=== PATIENT | female | born 1985 | race Caucasian/White ===

== ENCOUNTER 2021-03-06 01:44 | Inpatient (IN) ==
[2021-03-06] MEDS ORDERED: ONDANSETRON 4 MG/2 ML VIAL IV PRN (01:56)
[2021-03-06] MEDS ORDERED: BUTORPHANOL 2 MG/ML VIAL IV PRN (01:56)
[2021-03-06] MEDS ORDERED: MEPERIDINE 50 MG/1 ML VIAL IV PRN (01:56)
[2021-03-06 02:19] LABS: Basophils % 0.4 % (0.0-0.8); Eosinophils # 0.1 10*3/uL (0.0-0.87); Eosinophils % 1.2 % (0.00-10.9); Hematocrit 32.9 VOL% (35.7-47.0); Hemoglobin 10.5 GM/DL (12.0-16.0); Immature Granulocytes % 0.3 %; Immature Granulocytes Absolute 0.02 #; Lymphocytes # 1.6 10*3/uL (1.4-4.0); Lymphocytes % 21.3 % (21.3-54.2); Mean Corpuscular HGB Conc 31.9 GM/DL (32-36); Mean Platelet Volume 12.2 FL (9.6-12.0); Monocytes % 8.5 % (1.7-12.7); Neutrophils % 68.3 % (38.7-73.9); Platelet Count 171 T/CUMM (130-400); Red Cell Distribution Width 13.8 % (9.3-17.3); White Blood Count 7.5 T/CUMM (4-12)
[2021-03-06 02:39] LABS: Alanine Aminotransferase 25 U/L (13-56); Albumin 2.7 G/DL (3.4-5.0); Alkaline Phosphatase 107 U/L (45-117); Aspartate Amino Transferase 13 U/L (0-37); Bilirubin,Total < 0.39 MG/DL (0.20-1.00); Blood Urea Nitrogen 8 MG/DL (7-18); Calcium 9.1 MG/DL (8.5-10.1); Carbon Dioxide 24 MMOL/L (21-32); Estimated Glom Filtration Rate 146 ML/MIN; Glucose 83 MG/DL (74-106); Osmolality,Calculated 273.5 MOS/KG (273-304); Potassium 3.9 MMOL/L (3.5-5.1); Sodium 139 MMOL/L (136-145); Total Protein 6.8 G/DL (6.4-8.2)
[2021-03-06] MEDS: LACTATED RINGERS 1,000 ML IV SCH ×2 (04:01→08:51)
[2021-03-06] MEDS: OXYTOCIN/LR 20 UNIT/1,000 ML BAG IV SCH ×3 (04:02→18:15)
[2021-03-06] MEDS ORDERED: INFLUENZA VIRUS VACCINE 0.5 ML SYRINGE IM ONE (05:34)
[2021-03-06] MEDS ORDERED: ONDANSETRON 4 MG/2 ML VIAL IV ONE (09:00)
[2021-03-06] MEDS ORDERED: diphenhydrAMINE 50 MG/1 ML VIAL IV PRN ×2 (09:00)
[2021-03-06] MEDS ORDERED: NALOXONE 0.4 MG/ML VIAL IV PRN (09:00)
[2021-03-06] MEDS ORDERED: hydrOXYzine HCL 25 MG/1 ML VIAL IM PRN (09:00)
[2021-03-06] MEDS ORDERED: PROMETHAZINE 25 MG/1 ML VIAL IM ONE (09:00)
[2021-03-06] MEDS ORDERED: ePHEDrine 50 MG/ML VIAL IV PRN (09:00)
[2021-03-06] MEDS ORDERED: CITRIC ACID/SODIUM CITRATE 30 ML UDCUP PO ONE (09:00)
[2021-03-06] MEDS ORDERED: LACTATED RINGERS 1,000 ML IV ONE (09:00)
[2021-03-06] MEDS ORDERED: fentaNYL 2 MCG/ROPIV 0.2% EPID 100 ML EPIDURAL SCH (09:00)
[2021-03-06] MEDS ORDERED: FAMOTIDINE 20 MG/2 ML VIAL IV ONE (09:00)
[2021-03-06 12:35] LABS: Bilirubin,Urine Negative (Negative); Blood, Urine Negative (Negative); Glucose,Urine (UA) Negative (Negative); Ketones,Urine 20 mg/dL (Negative); Nitrite,Urine Negative (Negative); Protein,Urine Negative; Urine Appearance CLEAR (Clear); Urine Color Straw (Yellow); Urine Specific Gravity 1.006 (1.001-1.035); Urine Urobilinogen < 2.0 EU/DL (0.2-1.0)
[2021-03-06] MEDS ORDERED: CARBOPROST TROMETHAMINE 250 MCG/ML AMP IM ONE (14:12)
[2021-03-06] MEDS ORDERED: METHYLERGONOVINE 0.2 MG/1 ML AMP ONE (14:12)
[2021-03-06] MEDS ORDERED: miSOPROStoL 200 MCG TABLET ONE (14:12)
[2021-03-06 14:36] LABS: Cord Arterial Blood HCO3 21.5 MMOL/L
[2021-03-06 14:41] LABS: Cord Venous Blood HCO3 22.7 MMOL/L; Cord Venous Blood PCO2 41.6 MMHG; Cord Venous Blood PO2 23.3 MMHG
[2021-03-06] MEDS: DOCUSATE SODIUM 100 MG CAPSULE PO SCH (21:02)
[2021-03-07] MEDS: IBUPROFEN 800 MG TABLET PO PRN ×2 (04:35→16:39)
[2021-03-07 06:27] LABS: Basophils % 0.4 % (0.0-0.8); Eosinophils # 0.1 10*3/uL (0.0-0.87); Eosinophils % 0.7 % (0.00-10.9); Hematocrit 29.1 VOL% (35.7-47.0); Hemoglobin 9.3 GM/DL (12.0-16.0); Immature Granulocytes % 0.5 %; Immature Granulocytes Absolute 0.04 #; Lymphocytes # 1.5 10*3/uL (1.4-4.0); Lymphocytes % 18.6 % (21.3-54.2); Mean Corpuscular Volume 93.6 FL (87-102); Mean Platelet Volume 12.6 FL (9.6-12.0); Monocytes % 8.5 % (1.7-12.7); Neutrophils % 71.3 % (38.7-73.9); Platelet Count 132 T/CUMM (130-400); Red Blood Count 3.11 MC/CUMM (3.8-5.5); Red Cell Distribution Width 13.8 % (9.3-17.3); White Blood Count 8.1 T/CUMM (4-12)
[2021-03-07] MEDS: MULTIVITAMIN (PRENATAL) TABLET PO SCH (09:31)
[2021-03-07] MEDS: DOCUSATE SODIUM 100 MG CAPSULE PO SCH ×2 (09:31→21:30)
[2021-03-08 05:46] LABS: Basophils % 0.5 % (0.0-0.8); Eosinophils # 0.2 10*3/uL (0.0-0.87); Eosinophils % 2.4 % (0.00-10.9); Hematocrit 29.9 VOL% (35.7-47.0); Hemoglobin 9.3 GM/DL (12.0-16.0); Lymphocytes # 1.8 10*3/uL (1.4-4.0); Lymphocytes % 28.3 % (21.3-54.2); Mean Corpuscular HGB Conc 31.1 GM/DL (32-36); Mean Corpuscular Volume 95.8 FL (87-102); Mean Platelet Volume 12.8 FL (9.6-12.0); Monocytes % 9.4 % (1.7-12.7); Neutrophils % 59.1 % (38.7-73.9); Platelet Count 135 T/CUMM (130-400); Red Blood Count 3.12 MC/CUMM (3.8-5.5); White Blood Count 6.3 T/CUMM (4-12)
[2021-03-08 06:40] LABS: Anisocytosis 1+; Band Neutrophils 6 % (0-10); Eosinophils 2 % (0-10); Lymphocytes 27 % (20-55); Platelet Estimate Adequate; Segmented Neutrophils 58 % (50-85)
[2021-03-08 08:23] VITALS: BP 118/64
[2021-03-08] MEDS: DOCUSATE SODIUM 100 MG CAPSULE PO SCH (09:30)
[2021-03-08] MEDS: MULTIVITAMIN (PRENATAL) TABLET PO SCH (09:30)
[2021-03-08] MEDS ORDERED: DIPH/TET/ACEL PERT BOOSTER VACCINE 0.5 ML VIAL IM ONE (10:38)
== END 2021-03-08 12:30 | disposition home or self-care (01) | DRG 807 ==
LOC: N.LD 01:44 → N.OB 18:20
PROVIDERS: ADMIT Obstetrics & Gynecology; ATTEND Obstetrics & Gynecology